=== PATIENT | female | born 1970 | race African-American/Black ===

== ENCOUNTER 2017-11-12 20:54 | Emergency (ER) | payer SELFPAY ==
[~2017-11-12] VITALS: Ht 172.7 cm; Wt 83.9 kg
[~2017-11-12 20:54] MED LIST: AMLO10TA2; FERR-7; HYDRPOW88
[2017-11-12] MEDS ORDERED: KETOROLAC TROMETH 30 MG/ML 1ML VIAL IV ONE (22:30)
[2017-11-12] MEDS ORDERED: MEPERIDINE HCL (50 MG/ML) 1 ML VIAL IV ONE (23:45)
[2017-11-13] MEDS ORDERED: ETOMIDATE (2MG/ML) 20ML VIAL IV ONE
[2017-11-13] MEDS ORDERED: cloNIDine HCL 0.1 MG TAB PO ONE ×2 (00:45→02:00)
[2017-11-13 02:30] VITALS: BP 131/83
== END 2017-11-13 03:09 | disposition home or self-care (01) ==
LOC: ER 20:54
DX: S52.511A Displaced fracture of right radial styloid process, initial encounter for closed fracture (principal); S52.611A Displaced fracture of right ulna styloid process, initial encounter for closed fracture; F17.210 Nicotine dependence, cigarettes, uncomplicated; I48.91 Unspecified atrial fibrillation; I10 Essential (primary) hypertension; X58.XXXA Exposure to other specified factors, initial encounter; Y93.89 Activity, other specified; Y92.89 Other specified places as the place of occurrence of the external cause; Y99.8 Other external cause status; Z90.710 Acquired absence of both cervix and uterus
CPT/HCPCS: 25605; 73100; 73110; 73130; 96374; 96375; 99285; J1885; J2175; J7030

== ENCOUNTER 2018-05-18 05:37 | Emergency (ER) | payer MEDICAID, OTHER ==
[~2018-05-18] VITALS: Ht 175.3 cm; Wt 59.0 kg
[~2018-05-18 05:37] MED LIST changes: +AMLO10TA12; -AMLO10TA2
[2018-05-18 05:53] VITALS: BP 166/104
== END 2018-05-18 06:05 | disposition left against medical advice (07) ==
LOC: ER 05:41
DX: R19.7 Diarrhea, unspecified (principal); Z53.21 Procedure and treatment not carried out due to patient leaving prior to being seen by health care provider

== ENCOUNTER 2022-04-19 19:33 | Emergency (ER) | payer OTHER ==
[~2022-04-19] VITALS: Ht 175.3 cm; Wt 93.0 kg
[~2022-04-19 19:33] MED LIST changes: +AMLO-496; -AMLO10TA12
[2022-04-19] MEDS ORDERED: DexAMETHasone SOD PHOS 10MG/1ML VIAL INJ IV ONE (21:00)
[2022-04-19 21:49] VITALS: BP 120/83
== END 2022-04-19 21:52 | disposition home or self-care (01) ==
LOC: ER 19:36
DX: T78.1XXA Other adverse food reactions, not elsewhere classified, initial encounter (principal); L23.6 Allergic contact dermatitis due to food in contact with the skin; F41.9 Anxiety disorder, unspecified; I10 Essential (primary) hypertension; F17.210 Nicotine dependence, cigarettes, uncomplicated; Z79.899 Other long term (current) drug therapy; Z90.710 Acquired absence of both cervix and uterus; X58.XXXA Exposure to other specified factors, initial encounter
CPT/HCPCS: 96374; 99283; J1100

== ENCOUNTER 2023-09-30 17:24 | Emergency (ER) | payer OTHER ==
[~2023-09-30] VITALS: Ht 175.3 cm; Wt 97.4 kg
[2023-09-30 17:24] VITALS: PULSE 98; RESP 20
[~2023-09-30 17:24] MED LIST changes: -AMLO-496; +AMLO1TAB23
[2023-09-30] MEDS ORDERED: PRED20TA2 PO (22:15)
[2023-09-30] MEDS ORDERED: CLIN1CAP70 PO (22:15)
[2023-09-30] MEDS ORDERED: LORA10CA PO (22:15)
[2023-09-30 22:20] VITALS: BP 173/103
[2023-09-30 22:25] VITALS: O2SAT 98
[2023-09-30] MEDS: TETANUS-DIPTH-ACEL PERTUSSIS 0.5ML SYR Tdap IM ONE (22:50)
[2023-09-30] MEDS: DexAMETHasone SOD PHOS 10MG/1ML VIAL INJ IM ONE (22:51)
[2023-09-30] MEDS: cefTRIAXone SOD 1,000 MG VL IM ONE (22:54)
== END 2023-09-30 23:46 | disposition home or self-care (01) ==
LOC: ER 17:24
DX: S10.86XA Insect bite of other specified part of neck, initial encounter (principal); S80.861A Insect bite (nonvenomous), right lower leg, initial encounter; S40.862A Insect bite (nonvenomous) of left upper arm, initial encounter; I10 Essential (primary) hypertension; F17.210 Nicotine dependence, cigarettes, uncomplicated; I48.91 Unspecified atrial fibrillation; F41.9 Anxiety disorder, unspecified; E78.5 Hyperlipidemia, unspecified; Z90.710 Acquired absence of both cervix and uterus; W57.XXXA Bitten or stung by nonvenomous insect and other nonvenomous arthropods, initial encounter; Y93.89 Activity, other specified; Y92.89 Other specified places as the place of occurrence of the external cause; Y99.8 Other external cause status
CPT/HCPCS: 90471; 90715; 96372; 99284; J0696; J1100